=== PATIENT | female | born 1940 | race Caucasian/White ===

== ENCOUNTER 2017-05-25 15:45 | Inpatient (IN) ==
[2017-05-25] MEDS ORDERED: Morphine Oral CONC 5 MG/0.25 ML ORAL.SYG PO PRN (20:22)
[2017-05-25] MEDS ORDERED: Saline Nasal Spray 44 ML BOTTLE NS PRN (20:27)
[2017-05-25] MEDS: hydrALAZINE 25 MG TABLET PO SCH (22:04)
[2017-05-25] MEDS: Furosemide 40 MG TABLET PO SCH (22:04)
[2017-05-25] MEDS: Ipratropium/Albuterol Neb 3 ML IH PRN (23:16)
[2017-05-25] MEDS: Budesonide/Formoterol 160/4.5 MDI IH SCH (23:16)
[2017-05-26] MEDS: hydrALAZINE 25 MG TABLET PO SCH ×3 (05:59→23:00)
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
[2017-05-26] MEDS: Budesonide/Formoterol 160/4.5 MDI IH SCH ×2 (07:28→20:17)
[2017-05-26] MEDS: Ipratropium/Albuterol Neb 3 ML IH PRN ×2 (07:29→20:20)
[2017-05-26] MEDS: Furosemide 40 MG TABLET PO SCH ×2 (08:38→16:12)
[2017-05-26] MEDS: Venlafaxine XR (24 HR) 75 MG CAP.ER.24H PO SCH (08:38)
[2017-05-26] MEDS: *HR* LORazepam 0.5 MG TABLET PO PRN ×2 (10:49→19:52)
[2017-05-27] MEDS: hydrALAZINE 25 MG TABLET PO SCH ×3 (05:19→20:26)
[2017-05-27] MEDS: Ipratropium/Albuterol Neb 3 ML IH PRN (08:07)
[2017-05-27] MEDS: Budesonide/Formoterol 160/4.5 MDI IH SCH ×2 (08:07→21:02)
[2017-05-27] MEDS: Venlafaxine XR (24 HR) 75 MG CAP.ER.24H PO SCH (08:13)
[2017-05-27] MEDS: Furosemide 40 MG TABLET PO SCH ×2 (08:13→18:00)
--- NOTE | 2017-05-27 10:24 | Palliative Progress Note ---
Date of Encounter: 05/27/17 Time of Encounter: 09:15 - Assessment and plan (1) CVA (cerebral vascular accident) Current Visit: No Status: Acute Assessment and plan: History of CVA, this has greatly improved impaired her mobility, Qualifiers: CVA mechanism: unspecified Qualified Code(s): I63.9 - Cerebral infarction, unspecified (2) Goals of care, counseling/discussion Current Visit: Yes Status: Acute Assessment and plan: Patient is DNR CC, patient is here for respite care. There are potential problems with safety at home. Social work, from hospice is working on this. She will be here for 5 day respite care planning for discharge on the . (3) COPD (chronic obstructive pulmonary disease) Current Visit: No Status: Chronic Assessment and plan: Hospice in stage diagnosis. Continue oxygen, continue Acute changes today. Patient may very well and had either a CVA, myocardial infarct or possibly a PE. The patient's tachycardia tachypnea and early or diaphoresis. Patient also now got her more altered mental status and she has had. The patient is in hospice for COPD as an end-stage disease, and here for respite care will provide comfort measures only and no further investigation. Qualifiers: COPD type: unspecified COPD Qualified Code(s): J44.9 - Chronic obstructive pulmonary disease, unspecified - Time Spent With Patient Total time spent is greater than 50% in coordination of care (as documented) at patient's floor/unit and/or counseling patient: - Subjective Interval history: Patient having more acute trouble with shortness breath this morning also somewhat diaphoretic and less talkative. She is unable to articulate any problems with pain, I have asked the nursing staff given extra treatment and give when necessary medications. - Constitutional General appearance: Present: mild distress - Head Head exam: Present: atraumatic, normal inspection - Eye Eye exam: Present: normal appearance - Respiratory Respiratory exam: Present: decreased breath sounds, wheezes (But decreased from yesterday) - Cardiovascular Cardiovascular exam: Present: RRR, tachycardia - GI/Abdominal GI/Abdominal exam: Present: normal bowel sounds, soft. Absent: tenderness - Extremities Exam Extremities exam: Present: pedal edema - Neurological Exam Neurological exam: Present: altered - Psychiatric Psychiatric exam: Absent: agitated, anxious - Skin Skin exam: Present: dry, warm (But earlier was diaphoretic per nursing reports) Palliative Quality Palliative Quality: Screen for Code Status: Yes, Screen for Goals of Care: Yes, Screen for Pain: Yes, If Pain Regimen Started, Initiate Bowel Regimen: Yes, Screen for Nausea/Vomitting: Yes Code Status: 05/25/17 20:35 CODE [Resuscitation Status: Active] [RES] Routine Comment: Resuscitation Status: DNR-Comfort Care Consult Discharge Plan - Plan Referrals: NONE,PCP [Primary Care Provider] -
[2017-05-27] MEDS: Morphine Oral CONC 5 MG/0.25 ML ORAL.SYG PO PRN (11:03)
[2017-05-27] MEDS: *HR* LORazepam Oral Conc 2 MG/ML SL PRN (21:38)
[2017-05-28] MEDS: hydrALAZINE 25 MG TABLET PO SCH ×3 (05:06→20:57)
[2017-05-28] MEDS: Budesonide/Formoterol 160/4.5 MDI IH SCH ×2 (07:30→20:21)
[2017-05-28] MEDS: Ipratropium/Albuterol Neb 3 ML IH PRN ×2 (07:31→20:21)
[2017-05-28] MEDS: Nicotine 21 MG PATCH.TD24 TD SCH (07:57)
[2017-05-28] MEDS: Venlafaxine XR (24 HR) 75 MG CAP.ER.24H PO SCH (07:58)
[2017-05-28] MEDS: Morphine Oral CONC 5 MG/0.25 ML ORAL.SYG PO PRN ×4 (07:58→23:42)
[2017-05-28] MEDS: Furosemide 40 MG TABLET PO SCH ×2 (08:04→17:22)
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
[2017-05-28] MEDS ORDERED: Scopolamine Patch 1.5 MG PATCH.TD72 TD SCH (20:45)
[2017-05-28] MEDS: Atropine Sulfate 1% 40 DROP/2 ML BOTTLE SL PRN ×3 (20:53→23:10)
[2017-05-29] MEDS: Atropine Sulfate 1% 40 DROP/2 ML BOTTLE SL PRN ×8 (01:58→20:00)
[2017-05-29] MEDS: Morphine Oral CONC 5 MG/0.25 ML ORAL.SYG PO PRN ×5 (01:58→19:10)
[2017-05-29] MEDS: *HR* LORazepam Oral Conc 2 MG/ML SL PRN (02:04)
[2017-05-29] MEDS: hydrALAZINE 25 MG TABLET PO SCH (05:39)
[2017-05-29] MEDS: Venlafaxine XR (24 HR) 75 MG CAP.ER.24H PO SCH (08:15)
[2017-05-29] MEDS: Furosemide 40 MG TABLET PO SCH (08:15)
[2017-05-29] MEDS: Budesonide/Formoterol 160/4.5 MDI IH SCH ×2 (08:24→21:06)
--- NOTE | 2017-05-29 09:33 | Palliative Progress Note ---
Date of Encounter: 05/29/17 Time of Encounter: 09:00 - Assessment and plan (1) Dyspnea Current Visit: Yes Status: Acute Assessment and plan: Continue Roxanol, supportive oxygen, will schedule neb treatments for today. Appears to be aspirating. (2) Mental status change Current Visit: No Status: Acute Qualifiers: Altered mental status type: delirium Qualified Code(s): R41.0 - Disorientation, unspecified (3) COPD (chronic obstructive pulmonary disease) Current Visit: No Status: Chronic Qualifiers: COPD type: unspecified COPD Qualified Code(s): J44.9 - Chronic obstructive pulmonary disease, unspecified (4) Generalized pain Current Visit: Yes Status: Acute (5) Anxiety Current Visit: Yes Status: Acute Assessment and plan: Continue Lorazepam PRN. (6) Goals of care, counseling/discussion Current Visit: Yes Status: Acute Assessment and plan: Will d/c po medications at this point. She appears to be aspirating. Condition is declining. She has done well with the SL meds so will continue those for comfort. - Time Spent With Patient Total time spent is greater than 50% in coordination of care (as documented) at patient's floor/unit and/or counseling patient: 25 - 35 minutes - Subjective Interval history: Patient with increasing hypoxia and respiratory decline last pm. Most likely aspirating. Mental status has waxed and waned according to staff. Daughter Tonya was aware of changes and did spend the night with her. She has left for time and not present during my visit. Patient appears to be resting comfortably and does not appear in resp distress. O2 currently at 9LPM. She does open eyes when spoken to, but no verbal response for me. - Constitutional General appearance: Present: no acute distress - Respiratory Additional comments: Rhonchi throughout anterior chest - Cardiovascular Cardiovascular exam: Present: +S1, +S2 - GI/Abdominal GI/Abdominal exam: Present: normal bowel sounds, soft - Extremities Exam Extremities exam: Present: normal capillary refill, normal inspection - Neurological Exam Additional comments: Opens eyes with stimulation. No verbal response. Not following commands for me this am as she did yesterday. - Skin Skin exam: Present: dry, warm Additional comments: Face, nose dusky in appearance Palliative Quality Palliative Quality: Screen for Code Status: Yes, Screen for Goals of Care: Yes, Screen for Pain: Yes, If Pain Regimen Started, Initiate Bowel Regimen: Yes, Screen for Nausea/Vomitting: Yes Code Status: 05/25/17 20:35 CODE [Resuscitation Status: Active] [RES] Routine Comment: Resuscitation Status: DNR-Comfort Care Consult Discharge Plan - Plan Referrals: NONE,PCP [Primary Care Provider] - (respite patient. No need for follow up appointment)
[2017-05-29] MEDS: Ipratropium/Albuterol Neb 3 ML IH SCH ×3 (10:05→21:02)
[2017-05-29] MEDS: Nicotine 21 MG PATCH.TD24 TD SCH (10:44)
[2017-05-29 19:31] VITALS: BP 141/63
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
== END 2017-05-29 23:25 | disposition expired | DRG 192 ==
LOC: 2ANU 18:08
PROVIDERS: ADMIT Family Medicine Hospice and Palliative Medicine; ATTEND Family Medicine Hospice and Palliative Medicine